=== PATIENT | male | born 1965 | race Asian ===

== ENCOUNTER 2017-01-30 07:07 | Day surgery (SDC) | payer BC ==
[~2017-01-30] VITALS: Ht 177.8 cm; Wt 100.8 kg
[2017-01-30 08:26] VITALS: Ht 177.8 cm; Wt 100.8 kg
[2017-01-30] MEDS ORDERED: PROPOFOL 20 ML ONE ×3 (08:35→09:19)
[2017-01-30 08:46] VITALS: BP 143/77; PULSE 81; RESP 18
[2017-01-30] MEDS ORDERED: FENTAnyl 50 MCG/ML VIAL ONE (09:19)
--- NOTE | 2017-01-30 09:37 | OPPN ---
Date/Time of Note Date/Time of Note DATE: 01/30/17 TIME: 09:36 Proc Note GI Procedure Date 01/30/17 Indication: screening/surveillance Pre-procedure Diagnosis Colon cancer screening Post-procedure Diagnosis Polyp identified at 30 cm successfully removed by cold snare technique. Polyp was cauliflower in appearance and 1.5 cm in diameter Polyp was retrieved and sent for analysis Endoscopy all the way up to cecum cecum was seen from outside from prececal area appendiceal orifice visualized it was normal IC valve was normal. Dose of 5-10% stool in the cecum which could not be removed Procedure Performed: Colonoscopy Surgeon see signature line Hydrostatic Tubing Tester none Anesthesia Type: MAC Tourniquet Time none EBL none Transfusion required none Biopsy 1: None Polyp 1: Polyp removed Grafts/Implants none Tubes/Drains none Complication(s) none Disposition: PACU Procedure Description Report dictated ELLIOTT SARAVIA MD Jan 30, 2017 09:37
[2017-01-30 09:58] VITALS: BP 135/88; PULSE 60; RESP 24
[2017-01-30] MEDS ORDERED: ATORVASTATIN PO (10:07)
[2017-01-30] MEDS ORDERED: ASPIRIN PO (10:07)
[2017-01-30] MEDS ORDERED: ALLOPURINOL PO (10:07)
--- NOTE | 2017-01-30 13:40 | GILP ---
DATE OF PROCEDURE: PROCEDURE: Colonoscopy with polypectomy. INDICATION: A 51-year-old male undergoing this procedure for colon cancer screening. The risks of the procedure, related and unrelated complications, anesthetic risks, alternatives discussed. Infor med consent was obtained. DESCRIPTION OF PROCEDURE: The patient was brought to the GI lab, sedated by Dr. Barraza. After optima l sedation, digital examination done, which was normal. Scope was passed with much ease into rectum and advanced slowly through sigmoid, descending, transverse colon all the way up to the cecum. Blank endiceal orifice and IC valve identified. Cecum was 5% to 10% failed the stool but grossly it appea red normal. Rest of the colon appeared normal. While coming out, mucosa thoroughly inspected. He had somewhat unusual extra peristalsis. Polyp wa s finally identified by to and fro movement, which was successfully removed by cold snare technique. Rest of the colon appeared normal. IMPRESSION: 1. A 1.5 cm after and the polyp at 30 cm, successfully removed by cold snare technique. 2. Negative all the way into the cecum. 3. Clarity and cleanliness was good. 4. Digital examination was normal. PLAN: Review histopathology of the polyp and based on endoscopic finding definitely needs a repeat colonoscopy in 5 years. Dictated By: ELLIOTT AWLKER/ANANTH Conf#: [id number] DID#: [id number]
== END 2017-01-30 15:49 | disposition home or self-care (01) ==
LOC: GIL 07:07
PROVIDERS: ATTEND Internal Medicine Gastroenterology
DX: Z12.11 Encounter for screening for malignant neoplasm of colon (principal); K63.5 Polyp of colon; I10 Essential (primary) hypertension; E78.5 Hyperlipidemia, unspecified
CPT/HCPCS: 45385; 88305; J3010; Z7610